=== PATIENT | female | born 1975 | race Hispanic/Latino ===

== ENCOUNTER 2017-12-16 07:33 | Day surgery (SDC) | payer OTHER ==
[~2017-12-16] VITALS: Ht 162.6 cm; Wt 212.3 kg
[~2017-12-16 07:33] MED LIST: FURO20TA4 PO; SODIUM CHLORIDE 0.9% 1000ML 1,000 ML IV ONE
[2017-12-16 08:49] VITALS: BP 140/75
[2017-12-16] MEDS ORDERED: KETAMINE HCL 100 MG/ML 5ML VIAL IJ ONE (09:45)
[2017-12-16] MEDS ORDERED: MIDAZOLAM HCL 1 MG/ML 2ML VIAL ONE (09:54)
[2017-12-16 10:20] VITALS: BP 128/60
== END 2017-12-16 11:20 | disposition home or self-care (01) ==
LOC: ENDO 07:33 → DAH 07:33 → ENDO 11:20
PROVIDERS: ATTEND Internal Medicine
DX: K64.8 Other hemorrhoids (principal); K31.89 Other diseases of stomach and duodenum; K29.50 Unspecified chronic gastritis without bleeding; D50.9 Iron deficiency anemia, unspecified; E03.9 Hypothyroidism, unspecified; F41.9 Anxiety disorder, unspecified; E66.9 Obesity, unspecified; M19.90 Unspecified osteoarthritis, unspecified site; Z98.84 Bariatric surgery status; Z90.3 Acquired absence of stomach [part of]; Z79.899 Other long term (current) drug therapy; Z68.45 Body mass index [BMI] 70 or greater, adult
CPT/HCPCS: 36415; 43239; 45378; 84703; 88305; 88312; A4606; J2250; J3490; J7030

== ENCOUNTER → 2024-03-16 | Emergency (ER) | payer BC, OTHER ==
[~2024-03-16] VITALS: Ht 152.4 cm; Wt 98.9 kg
[~2024-03-16] MED LIST changes: -SODIUM CHLORIDE 0.9% 1000ML 1,000 ML IV ONE
[2024-03-16 10:17] LABS: RAPID GROUP A STREP negative (NEGATIVE)
[2024-03-16 10:26] LABS: COVID19 (SARS ANTIGEN RAPID) PRESUMPTIVE NEGATIVE (NEGATIVE); INFLUENZA TYPE A Negative For Type A (NEGATIVE); INFLUENZA TYPE B Negative For Type B (NEGATIVE)
[2024-03-16 11:18] VITALS: BP 128/70; PULSE 82; RESP 16; TEMP 98; O2SAT 98
== END ==
LOC: EDH 09:33
DX: R07.0 Pain in throat (principal); Z79.899 Other long term (current) drug therapy; Z90.710 Acquired absence of both cervix and uterus; Z98.890 Other specified postprocedural states; Z20.822 Contact with and (suspected) exposure to COVID-19
CPT/HCPCS: 87426; 87804; 87880

== ENCOUNTER 2024-04-16 06:25 | Emergency (ER) | payer BC ==
[~2024-04-16] VITALS: Ht 152.4 cm; Wt 98.9 kg
[2024-04-16 06:41] VITALS: BP 119/62; PULSE 86; RESP 18; TEMP 97.8; O2SAT 98
[2024-04-16] MEDS ORDERED: AMOX500C2 PO (06:42)
[2024-04-16] MEDS: dexaMETHasone 4 MG TAB PO SCH (06:50)
[2024-04-16 06:51] LABS: RAPID GROUP A STREP negative (NEGATIVE)
[2024-04-16 06:55] LABS: SARS-CoV-2, RNA, NAAT NEGATIVE SARS CoV-2 (NEGATIVE)
[2024-04-16 07:01] LABS: INFLUENZA TYPE A Negative For Type A (NEGATIVE); INFLUENZA TYPE B Negative For Type B (NEGATIVE)
== END 2024-04-16 07:05 | disposition home or self-care (01) ==
LOC: EDH 06:25
DX: J02.0 Streptococcal pharyngitis (principal); Z79.899 Other long term (current) drug therapy; Z90.710 Acquired absence of both cervix and uterus; Z20.822 Contact with and (suspected) exposure to COVID-19
CPT/HCPCS: 99283; 87635; 87880; 87804 ×2; J8540

== ENCOUNTER 2025-03-01 11:08 | Emergency (ER) | payer BC ==
[~2025-03-01] VITALS: Ht 152.4 cm; Wt 99.8 kg
[~2025-03-01 11:08] MED LIST changes: +AMOX500C2 PO
[2025-03-01 11:16] VITALS: BP 130/62; PULSE 86; RESP 16; TEMP 98.1; O2SAT 99
--- NOTE | 2025-03-01 12:00 | ERN ---
ED Note History of Present Illness Stated Complaint: LEFT EYE BLURRED VISION Chief Complaint: Eye Problems Time Seen by MD: 11:10 Time Seen by Midlevel: 11:11 Dictation: 40-year-old female presents to the emergency department due to reported having generalized headaches which she describes as being achy in sensation. She states that she has followed up with her PCP and is pending a referral. There is no record of any nausea or vomiting. Patient states that this headaches have been off and on for a couple of years. Upon initial evaluation, the patient presents with a normal neurologic examination Allergies: Coded Allergies: No Known Drug Allergies (Unverified Allergy, Unknown, 12/15/17) Emergency Care DAY CARE SUPERVISOR: None Home Meds Active Scripts Amoxicillin (Amoxicillin) 500 Mg Capsule, 500 MG PO BID for 10 Days, #20 CAP Prov:RAUL BIRCH 04/16/24 Reported Medications Furosemide (Furosemide) 20 Mg Tablet, 20 MG PO DAILY, TAB 12/15/17 Past Medical History Past Medical History: No Pertinent History, Bronchitis Surgical History: Hysterectomy, Review of System Dictation Neuro: Headache Initial Vital Sign VS Vital Signs Date Time Temp Pulse Resp B/P (MAP) Pulse Ox O2 Delivery O2 Flow Rate FiO2 03/01/25 11:09 97.9 89 16 132/62 99 Room Air 03/01/25 11:16 0 21 Physical Exam Dictation General: awake, alert, NAD Head/Face: Normocephalic, atraumatic Eyes: PERRL, EOMI ENT: Oral mucosa moist Neck: Trachea midline, supple Cardiovascular: RRR, no edema Respiratory: Symmetrical, non-labored Abdomen: Soft, non-tender, non-distended, no guarding. Skin: Warm, dry, good turgor, no rash MS/Extremity: Pulses equal, no cyanosis, neurovascular intact, FROM Neuro: COAx4, GCS 15, steady gait, Psych: Normal behavior, mood, and affect normal ED Course ED Course Orders Procedure Category Date Status Time Acetaminophen 500mg PHA 03/01/25 Complete Tab (Tylenol 500mg T 11:30 Current Medications Medications (Trade) Dose Ordered Sig/Elaine Route PRN Reason Start Time Stop Time Status Last Admin Dose Admin Acetaminophen (TYLenol 500MG TAB) 1,000 mg ONCE ONCE PO 03/01/25 11:30 03/01/25 11:31 DC 03/01/25 11:33 Vital Signs Date Time Temp Pulse Resp B/P (MAP) Pulse Ox O2 Delivery O2 Flow Rate FiO2 03/01/25 11:16 98.1 86 16 130/62 99 Room Air* 0 21 03/01/25 11:09 97.9 89 16 132/62 99 Room Air Medical Decision Making MDM MDM: Differential diagnosis: Acute headache, tension headache, migraine headache Rationale: Tests considered and ordered secondary to shared decision making include: Previous outside records reviewed: Old ER visits. Risk of complication and/or morbidity or mortality of patient management: None Medications-Per medication reconciliation Need for hospitalization: Patient does not meet criteria for hospitalization. Need for emergency major/minor surgery: No There are no social concerns with this patient. Prescription drug management Prescriptions will include symptomatic care Patient's prior external medical records from other ER visits were reviewed by me as indicated. Prior testing and results from previous visits were reviewed. Prior tests were taken into account with medical decision making and resource utilization, independent historian/historians were used to obtain complete medical history. I independently interpreted the test that were performed, results were reviewed by me and considered findings on radiology if ordered. Medical management and examination interpretation discussions were had by me with other qualified healthcare professionals as indicated for the patient's care. DX & DISP Disposition: Discharge Departure Impression: Primary Impression: Acute headache Condition: Stable Time of Disposition: 11:59 KATELIN GARNER Mar 01, 2025 12:00 RAUL BIRCH DO Mar 01, 2025 16:33
== END 2025-03-01 12:09 | disposition home or self-care (01) ==
LOC: EEVIPCON 11:08 → EDH 11:08
DX: R51.9 Headache, unspecified (principal); H53.8 Other visual disturbances; Z79.899 Other long term (current) drug therapy; Z90.710 Acquired absence of both cervix and uterus; Z98.890 Other specified postprocedural states
CPT/HCPCS: 99282

== ENCOUNTER 2025-06-26 13:09 | Emergency (ER) | payer BC ==
[~2025-06-26] VITALS: Ht 152.4 cm; Wt 99.8 kg
[2025-06-26 13:47] LABS: RAPID GROUP A STREP negative (NEGATIVE)
[2025-06-26 13:55] LABS: COVID19 (SARS ANTIGEN RAPID) PRESUMPTIVE NEGATIVE (NEGATIVE)
[2025-06-26 13:56] LABS: INFLUENZA TYPE A Negative For Type A (NEGATIVE); INFLUENZA TYPE B Negative For Type B (NEGATIVE)
--- NOTE | 2025-06-26 14:17 | ERN ---
ED Note History of Present Illness Stated Complaint: FEVER,COUGH,CONGESTION,BODYACHES Chief Complaint: Flu Symptoms Time Seen by MD: 13:12 Dictation: Patient is a 40-year-old female who presented to the ER complaining of fever, chills, congestion, shortness breath cough. Symptoms started 2 days ago. Allergies: Coded Allergies: No Known Drug Allergies (Unverified Allergy, Unknown, 12/15/17) Home Meds Active Scripts Azithromycin (Azithromycin) 250 Mg Tablet, 1 TAB PO AD for 5 Days, #6 TAB 0 Refills 2 the first day followed by 1 for days 2-5 Prov:DAVINA MUNOZ MD 06/26/25 Guaifenesin (Guaifenesin) 100 Mg/5 Ml Liq, 10 ML PO QID for cough for 3 Days, #120 ML 0 Refills Prov:DAVINA MUNOZ MD 06/26/25 Ibuprofen (Ibuprofen) 400 Mg Tablet, 1 TAB PO TID for pain or fever for 20 Days, #60 TAB 0 Refills Prov:DAVINA MUNOZ MD 06/26/25 Amoxicillin (Amoxicillin) 500 Mg Capsule, 500 MG PO BID for 10 Days, #20 CAP Prov:RAUL BIRCH DO 04/16/24 Reported Medications Furosemide (Furosemide) 20 Mg Tablet, 20 MG PO DAILY, TAB 12/15/17 Past Medical History Past Medical History: No Pertinent History, Bronchitis Surgical History: Hysterectomy, Review of System Dictation NEGATIVE EXCEPT PER HPI Constitutional: Reports chills and fever Eyes: Negative for injury, pain,redness, and discharge ENT: Negative for injury,pain or swelling Cardiovascular: denies chest pain, palpitations, and edema Respiratory: Cough, shortness breath, congestion Abdomen/GI: Negative for abdominal pain, nausea, vomiting, diarrhea, and constipation Back: Negative for injury and pain : Negative for injury, bleeding and discharge MS/Extremity: Negative for injury and deformity Skin: Negative for rash, and discoloration Neuro: Negative for headache, weakness, numbness, tingling, and seizure Psych: Negative for suicide ideation, homicidal ideation, and hallucinations Initial Vital Sign VS Vital Signs Date Time Temp Pulse Resp B/P (MAP) Pulse Ox O2 Delivery O2 Flow Rate FiO2 06/26/25 13:10 101.5 108 20 131/78 99 Room Air 0 06/26/25 16:23 21 Physical Exam Dictation General: awake, alert, NAD Head/Face: Normocephalic, atraumatic Eyes: PERRL, EOMI, vision at baseline ENT: oral cavity clear, TMs clear, no signs of infection Neck: Trachea midline, supple, no nuchal rigidity Cardiovascular: RRR, normal S1/S2, No MRGs, no JVD Respiratory: CTAB, no respiratory distress, No rales or wheezes Abdomen: Soft , no tender Skin: Warm, dry, normal turgor, no rash MS/Extremity: Pulses equal, no cyanosis, neurovascular intact, FROM Neuro: COAx4, GCS 15, strength 5/5, CN 2-12 intact, normal cerebellar exam, normal gait, Psych: Normal behavior, mood, and affect normal Results (Laboratory/Radiology) Laboratory/Radiology Laboratory Tests Test 06/26/25 13:24 06/26/25 14:23 Influenza Type A Antigen Negative For Type A Influenza Type B Antigen Negative For Type B SARS-CoV-2 Antigen (Rapid) PRESUMPTIVE NEGATIVE Group A Streptococcus Rapid negative (NEGATIVE) White Blood Count 8.2 K/uL (4.8-10.8) Red Blood Count 4.59 MIL/uL (4.00-5.50) Hemoglobin 13.5 g/dL (12.0-16.0) Hematocrit 41.3 % (36-48) Mean Corpuscular Volume 90.0 fL (79-99) Mean Corpuscular Hemoglobin 29.4 pg (27.0-33.0) Mean Corpuscular Hemoglobin Concent 32.7 g/dL (32.0-36.0) Red Cell Distribution Width 13.5 % (11.0-15.5) Platelet Count 231 K/uL (130-400) Mean Platelet Volume 10.6 fL (7.5-10.5) H Immature Granulocyte % (Auto) 0.4 % (0-1) Neutrophils (%) (Auto) 84.0 % (40.0-77.0) H Lymphocytes (%) (Auto) 5.5 % (21.0-51.0) L Monocytes (%) (Auto) 9.9 % (3.0-13.0) Eosinophils (%) (Auto) 0.1 % (0.0-8.0) Basophils (%) (Auto) 0.1 % (0.0-5.0) Neutrophils # (Auto) 6.9 K/uL (1.8-7.7) Lymphocytes # (Auto) 0.5 K/uL (1.0-4.8) L Monocytes # (Auto) 0.8 K/uL (0.1-1.0) Eosinophils # (Auto) 0.01 K/uL (0.00-0.70) Basophils # (Auto) 0.01 K/uL (0.00-0.20) Absolute Immature Granulocyte (auto 0.03 K/uL (0-1) Nucleated Red Blood Cells 0.0 % (0.0-0.19) White Cell Morphology Comment See comments Sodium Level 134 mmol/L (136-145) L Potassium Level 3.6 mmol/L (3.5-5.1) Chloride Level 102 mmol/L (101-111) Carbon Dioxide Level 22 mmol/L (21-32) Blood Urea Nitrogen 6 mg/dL (7-18) L Creatinine 0.7 mg/dL (0.5-1.0) Glomerular Filtration Rate Calc 112 mL/min (>90) Random Glucose 95 mg/dL (70-105) Total Calcium 8.7 mg/dL (8.5-10.1) ED Course ED Course Orders Procedure Category Date Status Time Influenza Type A & B, LAB 06/26/25 Complete Rapid 13:15 Rapid (Group A Strep) LAB 06/26/25 Complete 13:15 Covid19 (Sars Antigen LAB 06/26/25 Complete Rapid) 13:15 Chest 1vw RAD 06/26/25 Resulted 14:11 Cbc With Differential LAB 06/26/25 Complete 14:11 Basic Metabolic Panel LAB 06/26/25 Complete 14:11 Acetaminophen 500mg PHA 06/26/25 Complete Tab (Tylenol 500mg T 14:30 Ipratropium/Albuterol PHA 06/26/25 Complete Neb (Duoneb) 14:30 Ceftriaxone 1g Vial PHA 06/26/25 Complete (Rocephine 1g Inj) 14:30 Guaifenesin-Codeine PHA 06/26/25 Complete Syrup 5ml (Robitussi 14:30 0.9%Nacl 1000ml (Ns PHA 06/26/25 Complete 1000ml) 14:30 Ibuprofen 600 Mg PHA 06/26/25 Complete Tablet (Motrin) 16:00 Current Medications Medications (Trade) Dose Ordered Sig/Elaine Route PRN Reason Start Time Stop Time Status Last Admin Dose Admin Acetaminophen (TYLenol 500MG TAB) 500 mg ONCE ONCE PO 06/26/25 14:30 06/26/25 14:31 DC 06/26/25 15:16 Albuterol (DUOneb) 1 udvial ONCE ONCE IH 06/26/25 14:30 06/26/25 14:31 DC 06/26/25 15:01 Ceftriaxone Sodium (ROCEphine 1G INJ) 1 gm ONCE ONCE IVPB 06/26/25 14:30 06/26/25 14:31 DC Guaifenesin/ Codeine Phosphate (RobiTUSSin AC 5 ML SYRUP) 10 ml ONCE ONCE PO 06/26/25 14:30 06/26/25 14:31 DC 06/26/25 15:16 Ibuprofen (moTRIN) 600 mg ONCE ONCE PO 06/26/25 16:00 06/26/25 16:06 DC 06/26/25 16:24 Sodium Chloride 1,000 ml @ 0 mls/hr ONCE ONCE IV 06/26/25 14:30 06/26/25 14:31 DC Vital Signs Date Time Temp Pulse Resp B/P (MAP) Pulse Ox O2 Delivery O2 Flow Rate FiO2 06/26/25 16:24 100.9 06/26/25 16:23 100.9 105 20 121/75 95 Room Air* 0 21 06/26/25 15:16 101.5 06/26/25 15:02 105 18 06/26/25 13:10 101.5 108 20 131/78 99 Room Air 0 Medical Decision Making MDM Upper respiratory infection Fever 101.5 Ordered laboratory workup, chest x-ray, DuoNeb, ceftriaxone 1 g Guaifenesin Tylenol DX & DISP Disposition: Discharge Departure Impression: Primary Impression: Respiratory infection Condition: Stable Scripts Azithromycin (Azithromycin) 250 Mg Tablet 1 TAB PO AD for 5 Days, #6 TAB 0 Refills 2 the first day followed by 1 for days 2-5 Prov: DAVINA MUNOZ MD 06/26/25 Guaifenesin (Guaifenesin) 100 Mg/5 Ml Liq 10 ML PO QID for cough for 3 Days, #120 ML 0 Refills Prov: DAVINA MUNOZ MD 06/26/25 Ibuprofen (Ibuprofen) 400 Mg Tablet 1 TAB PO TID for pain or fever for 20 Days, #60 TAB 0 Refills Prov: DAVINA MUNOZ MD 06/26/25 Additional Instructions: RETURN TO ER FOR ANY ACUTE OR WORSENING SYMPTOMS. FOLLOW-UP IN 1-2 DAYS WITH PRIMARY PROVIDER FOR RECHECK OF TODAY'S SYMPTOMS. Referrals: SELF,REFERRAL (PCP) DAVINA MUNOZ MD Jun 26, 2025 14:17
[2025-06-26 14:31] LABS: IMMATURE GRANULOCYTE ABSOLUTE 0.03 K/uL (0-1); NUCLEATED RED BLOOD CELLS 0.0 % (0.0-0.19); PLATELET COUNT (AUTO) 231 K/uL (130-400); RED BLOOD CELL COUNT(AUTO) 4.59 MIL/uL (4.00-5.50); RED CELL DISTRIBUTION WIDTH 13.5 % (11.0-15.5); WHITE BLOOD COUNT (AUTO) 8.2 K/uL (4.8-10.8)
[2025-06-26 14:42] LABS: CREATININE 0.7 mg/dL (0.5-1.0); GLOMERULAR FILTR. RATE CALC 112.0 mL/min (>90); GLUCOSE,RANDOM 95.0 mg/dL (70-105); SODIUM SERUM 134.0 mmol/L (136-145); UREA NITROGEN, BLOOD 6.0 mg/dL (7-18)
[2025-06-26 15:02] VITALS: PULSE 105; RESP 18
--- NOTE | 2025-06-26 15:15 | HMCIMG ---
EXAM: CR Chest, 1 View. CLINICAL HISTORY: pneumonia COMPARISON: None provided. FINDINGS: LUNGS: The lungs show no infiltrate or other acute finding. PLEURAL SPACES: No pleural effusion or pneumothorax. MEDIASTINUM: The cardiomediastinal silhouette is within normal limits. BONES: No acute osseous abnormality. IMPRESSION: No acute cardiopulmonary pathology is evident. /[place]
[2025-06-26] MEDS: 0.9%NACL 1000ML 1,000 ML IV ONE (15:16)
[2025-06-26] MEDS ORDERED: AZIT250T9 PO (16:12)
[2025-06-26] MEDS ORDERED: GUAI100S13 PO (16:12)
[2025-06-26] MEDS ORDERED: IBUP-2076 PO (16:12)
[2025-06-26 16:23] VITALS: BP 121/75; PULSE 105; RESP 20; TEMP 100.9; O2SAT 95
[2025-06-26 16:24] VITALS: TEMP 100.9
--- NOTE | 2025-06-26 16:24 | NUR ---
PT REFUSING ANY IV MEDICATION AND IV INSERTION
== END 2025-06-26 16:27 | disposition home or self-care (01) ==
LOC: EDH 13:09
DX: J06.9 Acute upper respiratory infection, unspecified (principal); Z20.822 Contact with and (suspected) exposure to COVID-19; Z79.1 Long term (current) use of non-steroidal anti-inflammatories (NSAID); Z79.899 Other long term (current) drug therapy; Z90.710 Acquired absence of both cervix and uterus; Z98.890 Other specified postprocedural states
CPT/HCPCS: 36415; 71045; 80048; 85025; 87426; 87804; 87880; 94640; 99283; J0696; J7030